=== PATIENT | male | born 1980 | race Caucasian/White ===

== ENCOUNTER 2025-04-29 09:22 | Emergency (ER) | payer OTHER ==
[~2025-04-29] VITALS: Ht 167.6 cm; Wt 77.1 kg
[2025-04-29] MEDS ORDERED: LIDOCAINE HCL/PF 1% 30 ML SDV ONE (09:57)
[2025-04-29] MEDS: TDAP [DIPH/PERTUSSIS/TET] 0.5 ML VIAL IM ONE (10:00)
[2025-04-29] MEDS ORDERED: ACETAMINOPHEN ES 500 MG TABLET ONE (10:16)
[2025-04-29] MEDS ORDERED: TDAP [DIPH/PERTUSSIS/TET] 0.5 ML VIAL IM ONE (10:16)
[2025-04-29] MEDS: ACETAMINOPHEN ES 500 MG TABLET PO ONE (10:22)
[2025-04-29] MEDS ORDERED: OXYM15MI4 NS (10:52)
[2025-04-29] MEDS ORDERED: AMOX-427 PO (10:52)
[2025-04-29 11:15] VITALS: BP 111/74; TEMP 97.8; O2SAT 99
== END 2025-04-29 11:15 | disposition home or self-care (01) ==
LOC: ER 09:31
DX: S02.2XXA Fracture of nasal bones, initial encounter for closed fracture (principal); W22.09XA Striking against other stationary object, initial encounter; Y93.89 Activity, other specified; Y92.89 Other specified places as the place of occurrence of the external cause; Y99.8 Other external cause status
CPT/HCPCS: 12011; 70450; 70486; 90471; 90715; 99285; J3490